=== PATIENT | female | born 1965 | race Caucasian/White ===

== ENCOUNTER 2017-11-21 06:34 | Day surgery (SDC) | payer BC, OTHER ==
[2017-11-20 08:49] VITALS: BMI 24.0
[2017-11-21] MEDS ORDERED: fentaNYL CITRATE 250 MCG/5 ML VIAL ONE (07:59)
[2017-11-21] MEDS ORDERED: PROPOFOL 20 ML ONE ×12 (07:59→11:25)
[2017-11-21] MEDS ORDERED: ROCURONIUM BROMIDE 50 MG/5 ML VIAL ONE (07:59)
[2017-11-21] MEDS ORDERED: MIDAZOLAM HCL 2 MG/2 ML SINGLE DOSE VIAL ONE ×3 (08:00)
[2017-11-21] MEDS ORDERED: SCOPOLAMINE HYDROBROMIDE 1 PATCH PATCH.TD72 ONE (08:03)
[2017-11-21] MEDS ORDERED: EPINEPHrine/PF 1 MG/1 ML (1:1,000) AMPULE ONE (08:07)
[2017-11-21] MEDS ORDERED: LIDOCAINE HCL 2% (20ML MULTI-DOSE VIAL) NR ONE (08:07)
[2017-11-21] MEDS ORDERED: SODIUM BICARBONATE 8.4% - 50 ML ONE (08:11)
[2017-11-21] MEDS ORDERED: LIDOCAINE 1%/EPI 1:100000 (20 ML MULTI DOSE VIAL) ONE (08:18)
[2017-11-21] MEDS ORDERED: BUPIVACAINE HCL/PF 0.25% (2.5MG/ML) 10 ML VIAL ONE (08:18)
[2017-11-21] MEDS ORDERED: CLINDAMYCIN PHOSPHATE 600 MG/4 ML VIAL IVPB ONE (08:28)
[2017-11-21] MEDS ORDERED: BUPIVACAINE HCL/PF 0.25% (2.5MG/ML) 10 ML VIAL IJ ONE (08:52)
[2017-11-21] MEDS ORDERED: LIDOCAINE 1%/EPI 1:100000 (50 ML MULTI DOSE VIAL) INF ONE (08:52)
[2017-11-21] MEDS ORDERED: CLINDAMYCIN PHOSPHATE 600 MG/4 ML VIAL ONE (09:00)
[2017-11-21] MEDS ORDERED: ceFAZolin SODIUM 1 GM VIAL ONE (09:12)
[2017-11-21] MEDS ORDERED: GENTAMICIN SO4 80 MG/2 ML VIAL ONE (09:12)
[2017-11-21] MEDS ORDERED: VANCOMYCIN 1,000 MG VIAL (RESTRICTED TO ID ONLY) ONE (09:12)
[2017-11-21] MEDS ORDERED: DEXAMETHASONE SOD PHOSPHATE 4 MG/1 ML VIAL ONE (09:14)
[2017-11-21] MEDS ORDERED: VANCOMYCIN 1,000 MG VIAL (RESTRICTED TO ID ONLY) IVPB ONE (09:30)
[2017-11-21] MEDS ORDERED: ceFAZolin SODIUM 1 GM VIAL IVPB ONE (09:30)
[2017-11-21] MEDS ORDERED: GENTAMICIN SO4 80 MG/2 ML VIAL IVPB ONE (09:30)
[2017-11-21] MEDS ORDERED: BENZOIN/ALOE VERA/STORAX/TOLU 58 ML BOTTLE ONE (11:00)
[2017-11-21] MEDS ORDERED: ONDANSETRON 4 MG/2 ML VIAL IVPUSH PRN ×2 (12:11→12:27)
[2017-11-21] MEDS ORDERED: ACETAMINOPHEN 325 MG TABLET (FP) PO PRN (12:11)
[2017-11-21] MEDS ORDERED: LACTATED RINGERS SOLUTION 1,000 ML IV SCH (12:15)
[2017-11-21] MEDS ORDERED: PROMETHAZINE HCL 25 MG/1 ML VIAL IVPUSH PRN (12:27)
[2017-11-21 14:22] VITALS: TEMP 98.1
[2017-11-21] MEDS ORDERED: ACETAMINOPHEN 325 MG TABLET (FP) ONE (16:09)
[2017-11-21 16:30] VITALS: BP 101/58; PULSE 87
--- NOTE | 2017-11-23 13:54 | OP ---
DATE OF OPERATION: 11/21/2017 PREOPERATIVE DIAGNOSES: 1. Personal history of breast cancer. 2. Acquired abscess of bilateral breasts. 3. Bilateral chest wall deformity. POSTOPERATIVE DIAGNOSES: 1. Personal history of breast cancer. 2. Acquired abscess of bilateral breasts. 3. Bilateral chest wall deformity. PROCEDURE: 1. Removal of bilateral breast implants with open periprosthetic capsulotomies. 2. Bilateral insertion of breast implants (Natrelle Inspira style SSX-800 mL) 3. Revision of bilateral breast reconstruction with elevation of nipple areolar complexes. 4. Subcutaneous tissue transfer from bilateral flanks to bilateral breasts. ATTENDING SURGEON: Roderick Kumar MD. ANESTHESIA: General with LMA. ESTIMATED BLOOD LOSS: 30 mL. SPECIMENS: Right breast capsule to pathology. DRAINS: None. COMPLICATIONS: None. CONDITION: Stable to recovery room, extubated. INDICATIONS: The patient is a 52-year-old female who had previously undergone bilateral nipple sparing mastectomy as an implant based reconstruction. The patient now presents for secondary breast reconstruction including elevation of the nipple areolar complexes as well as changing of her implants. In addition, in order to correct the chest wall deformities, the patient will require subcutaneous tissue transfer from the flanks to bilateral breasts. The risks, benefits, and alternatives of the reconstruction were discussed with the patient in detail and all questions were answered. The risks include but are not limited to bleeding, infection, pain, need for revision or further surgery, partial or complete nipple loss, damage to nearby surrounding structures including nerves, arteries, veins, and tendons. The patient understands these risks and has elected to proceed with surgery. The procedure is as follows: DESCRIPTION OF OPERATIVE PROCEDURE: After proper identification and marking the patient in the preoperative holding the patient was transported to the operating room and placed supine on the table and noninvasive anesthesia monitors were applied. Intravenous access was established, general anesthesia was administered, and an LMA was inserted without difficulty. SCD boots were applied to bilateral extremities. Intravenous antibiotics were then given. The patients bilateral breasts as well as abdomen and flanks were then prepped and draped in the usual sterile fashion. After a time-out was performed, local anesthesia was infiltrated along the proposed incision lines using 1% lidocaine with 1:100,000 units of epinephrine. A total of 15 mL were given. Next, bilateral stab incisions were made along the patients previous lower abdominal scar. Standard tumescent solution was then infiltrated into the subcutaneous tissue of bilateral flanks as well as the lower abdomen. Once an adequate time was given for this tumescent fluid to take effect, the Micro Air system as loaded with a 5 mm cannula and it was used to harvest the subcutaneous tissue from bilateral flanks as well as the lower abdomen into the Revolve system. Once an adequate amount of tissue had been harvested, the access incisions were closed with a 4-0 plain gut in a simple interrupted fashion. The harvested lipoaspirate was then processed in the Revolve system with a warm lactated ringer wash and suction in order to remove extra fluid and blood. The isolated adipose sites were then transferred into 10 mL syringes in preparation for transfer. Attention at this point was turned towards the right breast where the previous inframammary fold scar was incised with a No. 15 blade. The incision was carried down through the subcutaneous tissue with electrocautery until the underlying breast capsule was encountered. The capsule was incised and the [place] Memory Shape 620 mL implant was removed and passed off the field. Next, the attention was turned towards the capsule. A lateral capsulotomy off the chest wall was performed along the chest wall where the pocket was noted to be slightly wide. A segment of capsule to be removed was marked. This was removed with electrocautery and passed off the field as right breast capsule. The capsule edges were then reapproximated to each other using a 0 Ethibond suture in a simple running fashion. Once the capsulotomy and capsulorrhaphy had been completed, the right breast pocket was irrigated with triple antibiotic solution and Betadine was used to prep the skin. At this point gloves were changed and an Allergan smooth round 800 mL breast implant was opened and bathed in triple antibiotic solution. It was then placed into the right breast pocket. Care was taken to ensure a good normal orientation of the implant. Once this was confirmed, the inferior capsule edges were reapproximated primarily using a 2-0 Vicryl suture in a simple running fashion. At this point the skin edges were temporarily reapproximated with a skin stapler. Next, attention was turned towards the left breast where the exact same procedure was performed to remove the previous breast implant and perform a capsulotomy and therefore only one side will be dictated. On the left side the pocket was irrigated with triple antibiotic solution and Betadine was used to reprep the skin. An Allergan 800 mL smooth round silicon breast implant was then opened and bathed in triple antibiotic solution. It was then placed into the left breast pocket and care was taken to assure a normal orientation. The inferior capsule was then reapproximated in a similar fashion on the right side and, therefore, only one side will be dictated. Once the capsule was closed on the left side, the skin edges were reapproximated using a skin stapler. Next, the patient was sat in an upright position and the locations of the nipple areolar complex elevations were confirmed. The patient was laid back down and the cookie cutter was centered around the right nipple areolar complex. This incision was then made. A cookie cutter was then centered on the site of the new nipple transposition and this incision was then made and the skin de-epithelized. Mobilization of the nipple areolar complex from the lateral, medial, and inferior skin edge was then performed and the nipple areolar complex was elevated and transposed and inset using a 3-0 Monocryl in a buried deep dermal fashion flowed by a 4-0 nylon in a simple running fashion. The amount of horizontal skin excess was then assessed and marked for excision. A curved Iris scissor was then used to excise this vertical wedge. The vertical limb was then reapproximated in layers using a 3-0 Monocryl in a very deep dermal fashion followed by 4-0 nylon in a simple running fashion. Once all of the incisions were closed on the right side, attention was turned towards the left side where the exact same procedure was performed in order to elevate the nipple areolar complex and perform a mastopexy and therefore only one side will be dictated. At this point, with all incisions closed, attention was turned towards the subcutaneous tissue transfer. The isolated adipose sites and the 10 mL syringes were layered in a modified Mitchell technique using the injection cannula. The adipose sites were layered underneath the skin in the superomedial, superior and superolateral aspects of the breast. There was noted to be a nice correction of the step off to the chest wall and a total of 80 mL were injected into the right beast and a total of 70 mL were injected into the left breast. Once this was completed, Mastisol and Steri-Strips were placed over all incision lines. The patient was then placed into a soft surgical bra as well as an abdominal binder. Care was taken to ensure adequate padding with fluffs and ABDs pads. The patient at this point was slowly awakened and the LMA was taken out without incident and the patient at this point was transported to recovery room in stable condition. RODERICK KUMAR M.D. TREMAYNE/[id number]
--- NOTE | 2017-11-25 17:05 | PATH ---
Surgical Pathology Report Patient Name: DAYA BLEDSOE [facility]. Rec. #: [id number] /Age/Gender: 1965 (Age: 52) / F Account: [id number] Location: AMBULATORY SURG Taken: 11/21/2017 Received: 11/21/2017 Reported: 11/25/2017 Physicians: Roderick Kumar MD Specimen(s) Received A: RIGHT BREAST CAPSULE B: RIGHT BREAST OLD IMPLANT C: LEFT BREAST OLD IMPLANT Clinical History History of breast cancer Final Diagnosis A. RIGHT BREAST CAPSULE, EXCISION: FIBROADIPOSE TISSUE AND SKELETAL MUSCLE SHOWING FOCAL FIBROSIS. B. RIGHT BREAST OLD IMPLANT, REMOVAL: CONSISTENT WITH BREAST IMPLANT. GROSS EXAMINATION ONLY. C. LEFT BREAST OLD IMPLANT, REMOVAL: CONSISTENT WITH BREAST IMPLANT. GROSS EXAMINATION ONLY. Electronically Signed Jose Elias M.D. Gross Description A. Received in formalin labeled "right breast capsule," is a 10.2 x 1.1 x 0.3 cm portion fibrous tissue, consistent with a portion of breast capsule. No discrete masses are identified. Voice Intercept Technician sections are submitted in one cassette. B. Received fresh labeled "right breast old implant," is a 14.5 x 13.5 x 6.0 cm intact breast implant. No soft tissue is present. No sections are submitted, gross only. C. Received fresh labeled "left breast old implant," is a 14.0 x 13.0 x 6.5 cm intact breast implant. No soft tissue is present. No sections are submitted, gross only. DL/11/21/2017 saudi11/21/2017
== END 2017-11-21 16:31 | disposition home or self-care (01) ==
LOC: JASUSAT 06:34
PROVIDERS: ATTEND Plastic Surgery
PROC: 0HRV0JZ Replacement of Bilateral Breast with Synthetic Substitute, Open Approach (ICD-10-PCS; 2017-11-21)
PROC: 0HPU0JZ Removal of Synthetic Substitute from Left Breast, Open Approach (ICD-10-PCS; 2017-11-21)
PROC: 0HPT0JZ Removal of Synthetic Substitute from Right Breast, Open Approach (ICD-10-PCS; 2017-11-21)
PROC: 0HRV0JZ Replacement of Bilateral Breast with Synthetic Substitute, Open Approach (ICD-10-PCS; 2017-11-21)
PROC: 0HRV07Z Replacement of Bilateral Breast with Autologous Tissue Substitute, Open Approach (ICD-10-PCS; principal; 2017-11-21 08:00)
PROC: 0HNV0ZZ Release Bilateral Breast, Open Approach (ICD-10-PCS; 2017-11-21 08:00)
DX: B85.3 Phthiriasis (principal); M95.4 Acquired deformity of chest and rib; N65.0 Deformity of reconstructed breast; Z90.13 Acquired absence of bilateral breasts and nipples
CPT/HCPCS: 88300-TC; 88304-TC; 94760

== ENCOUNTER 2018-12-30 11:59 | Day surgery (SDC) | payer BC, OTHER ==
[2018-12-28 17:33] VITALS: BMI 24.9
[2018-12-30] MEDS ORDERED: BUPIVACAINE LIPOSOME/PF (EXPAREL) 266 MG/20 ML VIAL ONE (12:30)
[2018-12-30] MEDS ORDERED: EPINEPHrine/PF 1 MG/1 ML (1:1,000) AMPULE ONE (12:30)
[2018-12-30] MEDS ORDERED: fentaNYL CITRATE 250 MCG/5 ML VIAL ONE (12:31)
[2018-12-30] MEDS ORDERED: EPHEDRINE SULFATE/0.9% NACL/PF 50 MG/10 ML SYRINGE NR ONE (12:31)
[2018-12-30] MEDS ORDERED: LIDOCAINE HCL 1%, 10 MG/ML (20ML VIAL) ONE (12:31)
[2018-12-30] MEDS ORDERED: PROPOFOL 20 ML ONE ×2 (12:31)
[2018-12-30] MEDS ORDERED: BUPIVACAINE HCL/PF 0.25% (2.5MG/ML) 10 ML VIAL ONE (12:31)
[2018-12-30] MEDS ORDERED: MIDAZOLAM HCL 2 MG/2 ML SINGLE DOSE VIAL ONE (12:32)
[2018-12-30] MEDS ORDERED: SODIUM BICARBONATE 8.4% - 50 ML ONE (13:45)
[2018-12-30] MEDS ORDERED: ceFAZolin SODIUM 1 GM VIAL ONE (14:02)
[2018-12-30] MEDS ORDERED: ceFAZolin SODIUM 1 GM VIAL IVPB ONE (14:11)
[2018-12-30] MEDS ORDERED: LIDOCAINE 1%/EPI 1:100000 (20 ML MULTI DOSE VIAL) IJ ONE (14:20)
[2018-12-30] MEDS ORDERED: BUPIVACAINE HCL/PF 0.25% (2.5MG/ML) 10 ML VIAL IJ ONE (14:20)
[2018-12-30] MEDS ORDERED: oxyCODONE HCL 5 MG TABLET PO PRN (15:00)
[2018-12-30] MEDS ORDERED: LACTATED RINGERS SOLUTION 1,000 ML IV SCH ×2 (15:00→16:15)
[2018-12-30] MEDS ORDERED: ONDANSETRON 4 MG/2 ML VIAL IVPUSH PRN ×2 (15:00→16:11)
[2018-12-30] MEDS ORDERED: NEOSTIGMINE METHYLSULFATE 0.5 MG/ML - 10 ML MDV ONE (15:13)
[2018-12-30] MEDS ORDERED: GLYCOPYRROLATE 0.2 MG/1 ML VIAL ONE (15:14)
[2018-12-30] MEDS ORDERED: DEXAMETHASONE SOD PHOSPHATE 4 MG/1 ML VIAL ONE (15:14)
[2018-12-30] MEDS ORDERED: LIDOCAINE HCL 2% JELLY (5 ML/TUBE) ONE (15:14)
[2018-12-30] MEDS ORDERED: LIDOCAINE HCL/PF 2% SDV 5ML VIAL ONE (15:15)
[2018-12-30] MEDS ORDERED: ACETAMINOPHEN 325 MG TABLET (FP) PO PRN (16:11)
[2018-12-30] MEDS ORDERED: ACETAMINOPHEN 1000 MG/100 ML VIAL (NON FORMULARY) IVPB ONE (16:44)
[2018-12-30] MEDS ORDERED: ACETAMINOPHEN INJECTION 100 ML IVPB ONE (17:03)
[2018-12-30 18:08] VITALS: TEMP 98.3
[2018-12-30 19:02] VITALS: BP 115/55; PULSE 82
--- NOTE | 2019-01-01 16:26 | PATH ---
Surgical Pathology Report Patient Name: DAYA BLEDSOE [facility]. Rec. #: [id number] /Age/Gender: 1965 (Age: 53) / F Account: [id number] Location: [facility] SURGICAL Taken: 12/30/2018 Received: 12/31/2018 Reported: 01/01/2019 Physicians: Roderick Baltazar M.D. Specimen(s) Received RIGHT BREAST CAPSULE Clinical History Malignant neoplasm of breast, reconstructed Final Diagnosis RIGHT BREAST CAPSULE, EXCISION: BENIGN FIBROADIPOSE TISSUE, CONSISTENT WITH BREAST CAPSULE. Electronically Signed Jose Elias M.D. Gross Description Receiving in formalin labeled "right breast capsule", is a portion of fibroadipose tissue measuring 14.0 x 3.0 x 0.3 cm. The fibrotic side shows a smooth surface consistent with a breast capsule. Automatic Developer sections submitted in 2 cassettes. ZINA/12/31/2018 wilfredo/12/31/2018
--- NOTE | 2019-01-05 09:32 | OP ---
DATE OF OPERATION: 12/30/2018 PREOPERATIVE DIAGNOSIS: 1. Past history of breast cancer. 2. Acquired absence of bilateral breasts. 3. Deformity of bilateral reconstructed breasts. PREOPERATIVE DIAGNOSIS: 1. Past history of breast cancer. 2. Acquired absence of bilateral breasts. 3. Deformity of bilateral reconstructed breasts. PROCEDURES: 1. Revision of right breast reconstruction. 2. Right breast open periprosthetic capsulotomy. 3. Reconstruction of right breast lower pole with Strattice porcine acellular dermal matrix. 4. Subcutaneous tissue transfer from abdomen, bilateral flanks, and bilateral upper arms to bilateral breasts. ATTENDING SURGEON: Roderick Kumar MD HORTICULTURAL TECHNICAL OFFICER: Vin Trujillo RPA ANESTHESIA: General with LMA. ESTIMATED BLOOD LOSS: 30 mL. SPECIMEN: Right breast capsule to pathology. DRAINS: None. COMPLICATIONS: None. CONDITION: Stable to recovery room; extubated. INDICATIONS: The patient is a 53-year-old female with a history of breast cancer who previously underwent bilateral nipple-sparing mastectomies and implant-based reconstruction. The patient now presents with residual deformities of the bilateral breasts. She is therefore indicated for revision of the bilateral breasts. The risks, benefits and alternatives of the reconstructive procedures were discussed with the patient preoperatively in detail and all questions were answered. The risks include, but are not limited to, bleeding, infection, pain, the need for revision or further surgery, residual breast asymmetry, residual breast deformity, damage to neighboring structures including nerves, arteries, veins and tendons. The patient understands these risks and has elected to proceed with surgery. PROCEDURE: After proper identification and marking of the patient in the preoperative holding area, the patient was transported to the operating room and placed supine on the table were non-invasive anesthesia monitors were applied. Intravenous access was established. General anesthesia was administered and the patient was intubated without difficulty. SCD boots were applied to the bilateral lower extremities. Intravenous antibiotics were then given. At this point, the patient's bilateral breasts, abdomen, bilateral flanks and bilateral upper arms were prepped and draped in the usual sterile fashion. After a time-out was performed, a local anesthetic mixture of 0.25% Marcaine mixed in a one-to-one fashion with 1% Lidocaine with epinephrine was infiltrated along the right breast inframammary fold scar as well as the planned access incisions along the lower abdominal scar, as well as along the bilateral upper arms just superior to the olecranon process. A total of 15 mL were injected. After a time-out was performed, attention was first turned to the abdomen and flanks. The access incisions were made with a no. 15 blade. Standard tumescent solution was then infiltrated into the subcutaneous tissue of the abdomen and bilateral flanks. The access incisions were then made along the bilateral upper arms and the standard tumescent solution was infiltrated into the subcutaneous tissue of the bilateral upper arms. A total of 2 liters of tumescent solution were infiltrated. While this was given time to take effect, attention was turned to the revision of the right breast reconstruction. The right breast inframammary fold incision was made along the previous scar. Dissection was carried down through the full thickness of the subcutaneous tissue with electrocautery. The underlying breast capsule was then identified. It was incised and the underlying breast implant was removed and placed into a sterile basin with triple antibiotic irrigation in it. Examination of the right breast capsule revealed attenuation of the inferior pole capsule with lowering of the inframammary fold. Attention was turned to the upper pole, where a capsulotomy was performed along the base from the 10 o'clock to 2 o'clock position. Once the capsulotomy had been performed, the right breast pocket was irrigated and hemostasis was ensured. The segment of the inferior pole capsule that was attenuated was then removed and passed off the field to be sent to pathology. At this point, a piece of Strattice porcine acellular dermal matrix, which was contoured, was bathed in two saline baths, followed by triple antibiotic irrigation, and was brought up to the right breast pocket. It was secured to the chest wall at the level of the new inframammary fold using a 2-0-Vicryl suture in a simple running fashion. It was started along the medial breast pocket and continued along the chest wall at the level of the inframammary fold and finished along the lateral breast pocket. Once the inferior edge of the Strattice was in place, the right breast pocket was irrigated with triple antibiotic solution and gloves were changed. The breast implant that had been removed was then placed back into the right breast pocket. It was positioned in order to match the left breast and was over-corrected slightly in order to anticipate stretching and softening of the acellular dermal matrix. The fixation point of the acellular dermal matrix on the underside of the right breast flap was then marked. The Strattice was then secured to the underside of the right breast skin flap using a 2-0 Vicryl suture in interrupted figure-of-8 fashion. Once the Strattice was fixated, the skin flap was re-draped and there was noted to be a correction of the inframammary fold position as well as slight over-correction of the vertical position of the implant. The right breast inframammary fold closure line was then performed using a 3-0 Monocryl and a buried deep dermal fashion, followed by a 3-0 V-Loc in a running subcuticular fashion. With the right breast revision and closure completed, the Micro Air system was loaded with a 5-mm cannula and was hooked up sterilely to the Reactivity collection system. Lipoaspirate was then harvested from the subcutaneous tissue of the abdomen and bilateral flanks. The 4-mm cannula was then loaded and lipoaspirate was harvested from the subcutaneous tissue of the bilateral upper arms. Once an adequate amount of lipoaspirate had been collected, the access incisions were closed with 5-0 plain gut in simple interrupted fashion. The lipoaspirate was then processed using multiple warm lactated Ringer's washes and the isolated adipocytes were loaded into 10-mL syringes in preparation for subcutaneous tissue transfer. Once the adipocytes were ready, stab incisions were made at the inframammary folds of the bilateral breasts and the Mitchell bucket-handled cannula was used to layer the adipocytes into the subdermal plane of the bilateral breasts. A total of 180 mL of adipocytes were transferred between the two breasts and there was noted to be an excellent correction in the preoperative deformities. Once the subcutaneous tissue transfer had been completed, the access incisions were closed with 5-0 plain gut sutures in simple interrupted fashion. All incisions were then dressed with Dermabond. This was followed by a soft surgical bra, with care taken to ensure adequate padding with Fluffs and ABD pads. The patient was also placed into an abdominal binder. At this point, the patient was slowly awakened and was extubated without incident. She was then transported to the recovery room in stable condition. Kalpesh [id number]
== END 2018-12-30 18:50 | disposition home or self-care (01) ==
LOC: JASU-SURG 11:59
PROVIDERS: ATTEND Plastic Surgery
PROC: 0KB80ZZ Excision of Left Upper Arm Muscle, Open Approach (ICD-10-PCS; 2018-12-30)
PROC: 0KB70ZZ Excision of Right Upper Arm Muscle, Open Approach (ICD-10-PCS; 2018-12-30)
PROC: 0WU Anatomical Regions, General, Supplement (ICD-10-PCS; 2018-12-30)
PROC: 0HNT0ZZ Release Right Breast, Open Approach (ICD-10-PCS; 2018-12-30)
PROC: 0HRT07Z Replacement of Right Breast with Autologous Tissue Substitute, Open Approach (ICD-10-PCS; principal; 2018-12-30 13:00)
DX: Z85.3 Personal history of malignant neoplasm of breast (principal); N65.0 Deformity of reconstructed breast; Z90.13 Acquired absence of bilateral breasts and nipples
CPT/HCPCS: 88305-TC; 94760; J0131

== ENCOUNTER 2020-04-27 08:56 | Day surgery (SDC) | payer BC, OTHER ==
[2020-04-20 16:40] VITALS: BMI 24.0
[2020-04-27] MEDS ORDERED: PROPOFOL 20 ML ONE (11:50)
[2020-04-27] MEDS ORDERED: MIDAZOLAM HCL 2 MG/2 ML SINGLE DOSE VIAL ONE ×3 (11:50→14:40)
[2020-04-27] MEDS ORDERED: EPINEPHrine/PF 1 MG/1 ML (1:1,000) AMPULE ONE (12:14)
[2020-04-27] MEDS ORDERED: GENTAMICIN SO4 80 MG/2 ML VIAL ONE (12:14)
[2020-04-27] MEDS ORDERED: ceFAZolin SODIUM 1 GM VIAL ONE (12:14)
[2020-04-27] MEDS ORDERED: BUPIVACAINE HCL/EPINEPHRINE/PF 30 ML VIAL IJ ONE (12:15)
[2020-04-27] MEDS ORDERED: LIDOCAINE HCL 2% (20ML MULTI-DOSE VIAL) ONE (12:15)
[2020-04-27] MEDS ORDERED: ACETAMINOPHEN 325 MG TABLET (FP) PO PRN (12:35)
[2020-04-27] MEDS ORDERED: ONDANSETRON 4 MG/2 ML VIAL IVPUSH PRN ×2 (12:35→14:49)
[2020-04-27] MEDS ORDERED: LACTATED RINGERS SOLUTION 1,000 ML IV SCH (12:45)
[2020-04-27] MEDS ORDERED: VANCOMYCIN 1,000 MG VIAL (RESTRICTED TO ID ONLY) ONE (12:48)
[2020-04-27] MEDS ORDERED: VECURONIUM BROMIDE 10 MG/10 ML VIAL ONE (12:48)
[2020-04-27] MEDS ORDERED: DEXAMETHASONE SOD PHOSPHATE 4 MG/1 ML VIAL ONE (12:55)
[2020-04-27] MEDS ORDERED: ONDANSETRON 4 MG/2 ML VIAL ONE ×2 (12:55→15:23)
[2020-04-27] MEDS ORDERED: EPHEDRINE SULFATE/0.9% NACL/PF 50 MG/10 ML SYRINGE NR ONE (13:06)
[2020-04-27] MEDS ORDERED: oxyCODONE HCL 5 MG TABLET PO PRN (14:49)
[2020-04-27] MEDS ORDERED: CEFAZOLIN 1 GM/D5W 1 GM/50 ML BAG IVPB SCH (15:00)
[2020-04-27] MEDS ORDERED: INSULIN (NOVOLOG) ASPART 100 UNITS/ML 10ML VIAL ONE (15:22)
[2020-04-27 16:05] VITALS: TEMP 97.6
[2020-04-27] MEDS ORDERED: ACETAMINOPHEN 325 MG TABLET (FP) ONE (16:34)
[2020-04-27 16:37] VITALS: BP 128/69; PULSE 79
== END 2020-04-27 16:54 | disposition home or self-care (01) ==
LOC: FASU 08:56
PROVIDERS: ATTEND Plastic Surgery
PROC: 0HNT0ZZ Release Right Breast, Open Approach (ICD-10-PCS; principal; 2020-04-27 12:59)
PROC: 0HUT0JZ Supplement Right Breast with Synthetic Substitute, Open Approach (ICD-10-PCS; 2020-04-27 12:59)
DX: N65.0 Deformity of reconstructed breast (principal); Z90.13 Acquired absence of bilateral breasts and nipples; Z85.3 Personal history of malignant neoplasm of breast
CPT/HCPCS: 88304-TC; 94760

== ENCOUNTER 2021-09-27 08:03 | Day surgery (SDC) | payer BC, OTHER ==
[2021-09-18 17:20] VITALS: BMI 26.6
[2021-09-27] MEDS ORDERED: VANCOMYCIN 1,000 MG VIAL (RESTRICTED TO ID ONLY) ONE (08:18)
[2021-09-27] MEDS ORDERED: ceFAZolin SODIUM 1 GM VIAL ONE ×2 (08:18→09:13)
[2021-09-27] MEDS ORDERED: BUPIVACAINE HCL/EPINEPHRINE/PF 30 ML VIAL IJ ONE ×3 (08:19→11:35)
[2021-09-27] MEDS ORDERED: GENTAMICIN SO4 80 MG/2 ML VIAL ONE (08:19)
[2021-09-27] MEDS ORDERED: MIDAZOLAM HCL 2 MG/2 ML SINGLE DOSE VIAL ONE (08:29)
[2021-09-27] MEDS ORDERED: PROPOFOL 20 ML ONE ×2 (08:29)
[2021-09-27] MEDS ORDERED: LIDOCAINE HCL/PF 2% SDV 5ML VIAL ONE (08:29)
[2021-09-27] MEDS ORDERED: DEXAMETHASONE SOD PHOSPHATE 4 MG/1 ML VIAL ONE (09:26)
[2021-09-27] MEDS ORDERED: ONDANSETRON 4 MG/2 ML VIAL ONE ×2 (09:26→11:14)
[2021-09-27] MEDS ORDERED: DESFLURANE GAS 240 ML BOTTLE IH ONE (10:45)
[2021-09-27] MEDS ORDERED: ONDANSETRON 4 MG/2 ML VIAL IVPUSH PRN (12:03)
[2021-09-27] MEDS ORDERED: ACETAMINOPHEN 1000 MG/100 ML BAG IVPB ONE (12:04)
[2021-09-27] MEDS ORDERED: FENTANYL CITRATE/PF 50 MCG/ML VIAL ONE ×3 (12:09→13:05)
[2021-09-27] MEDS ORDERED: LACTATED RINGERS SOLUTION 1,000 ML IV SCH (12:15)
[2021-09-27] MEDS ORDERED: HYDROmorphone HCL 2 MG TABLET PO PRN (13:13)
[2021-09-27 13:49] VITALS: TEMP 97.3
[2021-09-27] MEDS ORDERED: HYDROmorphone HCL 2 MG TABLET ONE (14:04)
[2021-09-27 14:37] VITALS: BP 116/74; PULSE 96
== END 2021-09-27 14:20 | disposition home or self-care (01) ==
LOC: FASU 08:03
PROVIDERS: ATTEND Plastic Surgery
PROC: 0HRV0JZ Replacement of Bilateral Breast with Synthetic Substitute, Open Approach (ICD-10-PCS; 2021-09-27)
PROC: 0HPU0JZ Removal of Synthetic Substitute from Left Breast, Open Approach (ICD-10-PCS; principal; 2021-09-27 09:26)
PROC: 0HPT0JZ Removal of Synthetic Substitute from Right Breast, Open Approach (ICD-10-PCS; 2021-09-27 09:26)
DX: Z85.3 Personal history of malignant neoplasm of breast (principal); Z90.13 Acquired absence of bilateral breasts and nipples; N65.0 Deformity of reconstructed breast
CPT/HCPCS: 15777; 19342; 19371; L8600; 81025; 88300-TC; 88304-TC; 88305-TC; 94760

== ENCOUNTER 2023-01-02 10:13 | Day surgery (SDC) | payer BC, OTHER ==
[2022-12-30 17:26] VITALS: BMI 28.1
[~2023-01-02 10:13] MED LIST: LACTATED RINGERS SOLUTION 1,000 ML IV SCH; ONDANSETRON 4 MG/2 ML VIAL IVPUSH PRN; PROMETHAZINE HCL 25 MG/1 ML VIAL IVPB PRN
[2023-01-02] MEDS ORDERED: OXYMETAZOLINE 0.05% NASAL SOLUTION 15 ML BOTTLE NS ONE (11:07)
[2023-01-02] MEDS ORDERED: LIDOCAINE 1%/EPI 1:100000 (50 ML MULTI DOSE VIAL) ONE (11:07)
[2023-01-02] MEDS ORDERED: COCAINE HCL 4% TOPICAL SOLUTION 4 ML BOTTLE TP ONE (11:14)
[2023-01-02] MEDS ORDERED: BUPIVACAINE HCL/EPINEPHRINE/PF 30 ML VIAL IJ ONE (11:28)
[2023-01-02] MEDS ORDERED: ACETAMINOPHEN INJECTION 100 ML IVPB ONE (11:39)
[2023-01-02] MEDS ORDERED: PROPOFOL 40 ML ONE (11:44)
[2023-01-02] MEDS ORDERED: MIDAZOLAM HCL 2 MG/2 ML SINGLE DOSE VIAL ONE (11:45)
[2023-01-02] MEDS ORDERED: ceFAZolin SODIUM 1 GM VIAL ONE (11:45)
[2023-01-02] MEDS ORDERED: HYDROmorphone HCL/PF 1 MG/ML VIAL ONE (12:24)
[2023-01-02] MEDS ORDERED: NEOSTIGMINE METHYLSULFATE 0.5 MG/1 ML - 10 ML MDV ONE (14:13)
[2023-01-02] MEDS ORDERED: PROPOFOL 20 ML ONE (14:52)
[2023-01-02] MEDS ORDERED: PROMETHAZINE HCL 25 MG/1 ML VIAL IVPB PRN (15:24)
[2023-01-02] MEDS ORDERED: ACETAMINOPHEN 325 MG TABLET (FP) PO PRN (15:29)
[2023-01-02] MEDS ORDERED: ONDANSETRON 4 MG/2 ML VIAL IVPUSH PRN (15:29)
[2023-01-02] MEDS ORDERED: LACTATED RINGERS SOLUTION 1,000 ML IV SCH (15:30)
[2023-01-02] MEDS: CEFAZOLIN 1 GM in DEXTROSE 5%-WATER - 50 ML IVPB SCH (20:59)
[2023-01-02 21:37] VITALS: RESP 18
[2023-01-02] MEDS: oxyCODONE HCL 5 MG TABLET PO PRN (23:37)
[2023-01-03] MEDS: CEFAZOLIN 1 GM in DEXTROSE 5%-WATER - 50 ML IVPB SCH ×3 (02:27→15:29)
[2023-01-03] MEDS: oxyCODONE HCL 5 MG TABLET PO PRN (05:33)
[2023-01-03 14:29] VITALS: BP 110/56; PULSE 83; TEMP 98.1
== END 2023-01-03 15:28 | disposition home or self-care (01) ==
LOC: FASU 10:13 → FASUSAT 10:13 → FM/S 16:07 → FASUSAT 01-03 15:28
PROVIDERS: ATTEND Plastic Surgery
PROC: 0WB80ZZ Excision of Chest Wall, Open Approach (ICD-10-PCS; 2023-01-02)
PROC: 090 Ear, Nose, Sinus, Alteration (ICD-10-PCS; principal; 2023-01-02 12:34)
DX: J98.8 Other specified respiratory disorders (principal); J34.89 Other specified disorders of nose and nasal sinuses; M95.0 Acquired deformity of nose
CPT/HCPCS: 94760